=== PATIENT | male | born 1945 | race Caucasian/White ===

== ENCOUNTER 2019-11-22 13:19 | Emergency (ER) | payer OTHER ==
--- NOTE | 2019-11-22 13:59 | EDM.PDOC ---
ED HPI GENERAL MEDICAL PROBLEM - General Chief Complaint: General Stated Complaint: L SIDE FACE/TONGUE SWOLLEN/NUMB Time Seen by Provider: 11/22/19 13:45 Source of Information: Reports: Patient History Limitations: Reports: No Limitations - History of Present Illness INITIAL COMMENTS - FREE TEXT/NARRATIVE: Michelle is a 74yo male that comes to the ED with a 3 weeks history of intermittent left cheek and left side of tongue numbness and pain. States that he took ibuprofen and it seemed to help. Yesterday afternoon and overnight the numbness and pain returned for the third time and he figured it was time to get it checked out. He took 400mg of ibuprofen at 800 am and currently rates his pain 3-4/10. At it's worst, he rated the pain 5-6/10. 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 [Unable to Verify Home Med List] 11/22/19 [History] ED ROS GENERAL - Review of Systems Review Of Systems: See Below Constitutional: Reports: No Symptoms HEENT: Reports: Other (pain and numbness along left mandible up into cheek and left tongue) Respiratory: Reports: No Symptoms Cardiovascular: Reports: No Symptoms Endocrine: Reports: No Symptoms GI/Abdominal: Reports: No Symptoms : Reports: No Symptoms Musculoskeletal: Reports: No Symptoms Skin: Reports: No Symptoms Neurological: Reports: No Symptoms Psychiatric: Reports: No Symptoms Hematologic/Lymphatic: Reports: No Symptoms Immunologic: Reports: No Symptoms ED EXAM, GENERAL - Physical Exam Exam: See Below Exam Limited By: Intoxication General Appearance: Alert, WD/WN, No Apparent Distress Eye Exam: Bilateral Eye: EOMI, Normal Inspection, PERRL Ears: Normal External Exam, Normal Canal, Normal TMs Ear Exam: Bilateral Ear: Auricle Normal, Canal Normal Nose: Normal Inspection, Normal Mucosa Throat/Mouth: Normal Inspection, Normal Lips, Normal Gums. No: Normal Teeth (all teeth have been removed- normally wears dentures but has sparingly due to facial & tongue pain) Head: Atraumatic, Normocephalic, Facial Tenderness (left cheek, mandible, under jaw). No: Facial Swelling Neck: Normal Inspection, Non-Tender, Full Range of Motion. No: Lymphadenopathy (R), Lymphadenopathy (L), Thyromegaly Respiratory/Chest: No Respiratory Distress, Lungs Clear, Normal Breath Sounds, Chest Non-Tender. No: Crackles, Wheezing Cardiovascular: Regular Rate, Rhythm Peripheral Pulses: 2+: Radial (L), Radial (R) GI/Abdominal: Soft, Non-Tender (Male) Exam: Deferred Rectal (Males) Exam: Deferred Back Exam: Normal Inspection. No: CVA Tenderness (R), CVA Tenderness (L) Extremities: Normal Inspection, Normal Capillary Refill Neurological: Alert, Oriented, CN II-XII Intact, Normal Cognition, Normal Gait, No Motor/Sensory Deficits Psychiatric: Normal Affect, Normal Mood Skin Exam: Warm, Dry, Intact Lymphatic: No Adenopathy Course - Vital Signs Last Recorded V/S: Last Vital Signs Temp 96.6 F L 11/22/19 13:56 Pulse 85 11/22/19 13:56 Resp 12 11/22/19 13:56 BP 156/76 H 11/22/19 13:56 Pulse Ox 95 11/22/19 13:56 - Orders/Labs/Meds Labs: Laboratory Tests 11/22/19 11/22/19 Range/Units 14:17 14:30 WBC 6.3 (4.5-11.0) K/uL RBC 5.25 (4.30-5.90) M/uL Hgb 14.8 (12.0-15.0) g/dL Hct 45.5 (40.0-54.0) % MCV 87 (80-98) fL MCH 28 (27-31) pg MCHC 33 (32-36) % Plt Count 204 (150-400) K/uL Neut % (Auto) 75 H (36-66) % Lymph % (Auto) 15 L (24-44) % [place] % (Auto) 7 H (2-6) % Eos % (Auto) 3 (2-4) % Baso % (Auto) 1 (0-1) % Sodium 141 (140-148) mmol/L Potassium 4.3 (3.6-5.2) mmol/L Chloride 106 (100-108) mmol/L Carbon Dioxide 26 (21-32) mmol/L Anion Gap 8.8 (5.0-14.0) mmol/L BUN 18 (7-18) mg/dL Creatinine 1.1 (0.8-1.3) mg/dL Est Cr Clr Drug Dosing 58.02 mL/min Estimated GFR (MDRD) > 60 (>60) Glucose 87 (74-106) mg/dL Calcium 8.3 L (8.5-10.1) mg/dL Total Bilirubin 0.4 (0.2-1.0) mg/dL AST 18 (15-37) U/L ALT 30 (12-78) U/L Alkaline Phosphatase 99 (46-116) U/L C-Reactive Protein 0.74 H (0.0-0.3) mg/dL Total Protein 6.5 (6.4-8.2) g/dL Albumin 3.6 (3.4-5.0) g/dL Globulin 2.9 (2.3-3.5) g/dL Albumin/Globulin Ratio 1.2 (1.2-2.2) TSH, Ultra Sensitive 2.095 (0.358-3.740) uIU/mL Meds: Medications Discontinued Medications Generic Name Dose Route Start Last Admin Trade Name Freq PRN Reason Stop Dose Admin Sodium Chloride 70 mls @ 3 mls/sec 11/22/19 14:40 11/22/19 15:05 Normal Saline IV 11/22/19 14:41 3 mls/sec ONETIME ONE Administration Iopamidol 100 ml 11/22/19 14:40 11/22/19 15:05 Isovue-300 (61%) IV 100 ml . DIRECTED PRN Administration RADIOLOGY EXAM Sodium Chloride 10 ml 11/22/19 14:40 11/22/19 15:05 Saline Flush FLUSH 10 ml ONETIME PRN Administration PER RADIOLOGY PROTOCOL - Radiology Interpretation Free Text/Narrative:: CT reading showed no cause for numbness and pain of left cheek/ tongue Departure - Departure Time of Disposition: 16:16 Disposition: Home, Self-Care 01 Clinical Impression: Left facial pain, Tongue pain - Discharge Information *PRESCRIPTION DRUG MONITORING PROGRAM REVIEWED*: Not Applicable *COPY OF PRESCRIPTION DRUG MONITORING REPORT IN PATIENT [place]SEMARY: Not Applicable Instructions: Glossopharyngeal Neuralgia, Neuropathic Pain Referrals: PCP,None [Primary Care Provider] - Forms: ED Department Discharge Additional Instructions: Continue with your current home medications. You have been placed on the referral list for an ENT (ear, nose, throat) appointment for when they are in [place] next. [facility] should call you with an appointment time. Call or return to ED with any worsening of symptoms like inability to swallow, increased swelling, facial drooping, severe pain or any other concerns. Sepsis Event Note (ED) - Focused Exam Vital Signs: Vital Signs Temp Pulse Resp BP Pulse Ox 11/22/19 13:56 96.6 F L 85 12 156/76 H 95 11/22/19 13:30 96.6 F L 85 12 156/76 H 95 - Assessment/Plan Plan: plan to discharge home. Follow-up with ENT when they are in [place] next- placed on referral list to . Pt agreeable to plan
[2019-11-22] MEDS ORDERED: Iopamidol 612 MG/ML 100 ML Bottle IV PRN (14:40)
[2019-11-22] MEDS: Sodium Chloride 0.9% 10 ML Syringe FLUSH PRN ×2 (14:47→15:05)
--- NOTE | 2019-11-22 15:53 | CRLCT ---
INDICATION: Numbness of left cheek and tongue TECHNIQUE: CT of the neck with 100 cc Isovue-300 iodinated contrast agent. Coronal and sagittal reconstructions are included. COMPARISON: No prior studies available for comparison at this institution. FINDINGS: A skin marker is noted along the left submental space. No underlying skin or subcutaneous lesions are identified. There is no mass or other lesion within the soft tissues of the suprahyoid or infrahyoid neck. No lymphadenopathy. The oral cavity, nasopharyngeal, oropharyngeal and hypopharyngeal mucosal spaces are normal. The patient is edentulous. The nasal septum is deviated to the right. The supraglottic, glottic and infraglottic larynx are normal. The airway including the trachea is normal and is patent. The parotid glands, submandibular and sublingual glands are normal in appearance. The vascular structures opacify normally with contrast material. Visualized orbital and intracranial contents are normal. Minimal mucosal thickening in the right maxillary sinus. Bilateral palatine tonsil calculi consistent with tonsilliths. Incidental 1 centimeter hypodense left thyroid nodule. No suspicious lytic or blastic osseous lesions. Scattered mild cervical spondylosis without significant neural foraminal stenosis. Incidental 3.2 cm lipoma in the left posterior neck between the splenius capitus and semispinalis capitus muscles. Supraclavicular regions, mediastinum and soft tissues of the imaged chest wall are normal. Visualized portions of the upper lungs are clear. IMPRESSION: 1. No suspicious neck mass or enhancement. 2. A skin marker is noted along the left submental space. No underlying skin or subcutaneous lesions are identified. 3. No evidence of neck inflammation. 4. No lymphadenopathy. 5. Incidental 3.2 cm lipoma in the left posterior neck between the splenius capitus and semispinalis capitus muscles. Please note that all CT scans at this facility use dose modulation, iterative reconstruction, and/or weight-based dosing when appropriate to reduce radiation dose to as low as reasonably achievable. Dictated by Angel Espitia MD @ Nov 22 2019 3:41PM Signed by Dr. Angel Espitia @ Nov 22 2019 3:51PM
== END 2019-11-22 16:30 | disposition home or self-care (01) ==
LOC: JP.ED 13:19
DX: K14.6 Glossodynia (principal); R51 Headache
CPT/HCPCS: 36415; 70491; 80053; 84443; 85025; 86140; 99283; J7050; Q9967

== ENCOUNTER 2024-07-24 14:21 | Emergency (ER) | payer SELFPAY ==
[2024-07-24] MEDS ORDERED: HYDROmorphone 1 MG/ML Syringe IVPUSH PRN (15:21)
[2024-07-24] MEDS ORDERED: Naloxone 0.4 MG/ML SDV IVPUSH PRN (15:21)
[2024-07-24 15:34] LABS: BASOPHILS ABSOLUTE AUTO 0.02 K/uL (0.00-0.10); BASOPHILS PERCENT AUTO 0.4 % (0.1-1.3); EOSINOPHILS ABSOLUTE AUTO 0.15 K/uL (0.00-0.40); EOSINOPHILS PERCENT AUTO 2.8 % (0.0-5.4); HEMATOCRIT 29.6 % (38.4-49.7); HEMOGLOBIN 9.9 g/dL (12.9-16.9); IMMATURE GRAN ABSOLUTE AUTO 0.02 K/uL (0.00-0.23); IMMATURE GRAN PERCENT AUTO 0.4 % (0.0-0.7); LYMPHOCYTES ABSOLUTE AUTO 0.84 K/uL (0.8-3.3); LYMPHOCYTES PERCENT AUTO 15.7 % (11.4-47.7); MEAN CORPUSCULAR HEMOGLOBIN 29.6 pg (31.6-35.5); MEAN CORPUSCULAR HGB CONC 33.4 g/dL (31.6-35.5); MEAN CORPUSCULAR VOLUME 88.4 fL (81.4-99.0); MONOCYTES PERCENT AUTO 13.1 % (3.3-12.6); NEUTROPHILS ABSOLUTE AUTO 3.62 K/uL (1.0-7.6); NEUTROPHILS PERCENT AUTO 67.6 % (40.0-78.1); PLATELET COUNT,PLT 219 K/uL (130-375); RED BLOOD CELL COUNT 3.35 M/uL (4.14-5.76); WHITE BLOOD CELL COUNT,WBC 5.4 K/uL (3.2-11.0)
[2024-07-24] MEDS: Sodium Chloride 0.9% 1,000 ML IV ONE (15:45)
[2024-07-24 15:54] LABS: C-REACTIVE PROTEIN 2.04 mg/dL (<0.50)
[2024-07-24 15:55] LABS: A/G RATIO 0.8 (1.2-2.2); ALANINE AMINOTRANSFERASE,ALT 43 U/L (12-78); ALBUMIN 2.1 g/dL (3.4-5.0); ALKALINE PHOSPHATASE 111 U/L (46-116); ANION GAP 6.7 mmol/L (5.0-14.0); ASPARTATE AMNIOTRANSFERASE,AST 33 U/L (15-37); BILIRUBIN TOTAL 0.3 mg/dL (0.2-1.0); BLOOD UREA NITROGEN,BUN 40 mg/dL (7-18); CALCIUM 7.9 mg/dL (8.5-10.1); CARBON DIOXIDE,CO2 27 mmol/L (21-32); CHLORIDE,CL 107 mmol/L (100-108); CREATININE 1.5 mg/dL (0.8-1.3); EST CRCL DRUG DOSING (CG) 39.28 mL/min; ESTIMATED GFR 47 mL/min (>60); GLUCOSE RANDOM 85 mg/dL (74-106); PROTEIN TOTAL,TP 4.8 g/dL (6.4-8.2); SODIUM,NA 141 mmol/L (140-148)
[2024-07-24] MEDS: Ondansetron 4 MG/2 ML SDV IVPUSH PRN (16:00)
[2024-07-24] MEDS: Sodium Chloride 0.9% 100 ML IV ONE (16:30)
[2024-07-24] MEDS: Iopamidol 612 MG/ML 100 ML Bottle IV ONE (16:30)
[2024-07-24 16:58] LABS: APPEARANCE,URINE CLEAR (CLEAR); BILIRUBIN,URINE NEGATIVE (NEGATIVE); COLOR,URINE YELLOW (YELLOW); GLUCOSE,URINE NEGATIVE (NEGATIVE); KETONES,URINE NEGATIVE (NEGATIVE); LEUKOCYTE ESTERASE,URINE NEGATIVE (NEGATIVE); NITRITE,URINE NEGATIVE (NEGATIVE); OCCULT BLOOD,URINE TRACE-INTACT (NEGATIVE); PROTEIN,URINE >=300 mg/dL (NEGATIVE); UROBILINOGEN,URINE 0.2 EU/dL (0.2-1.0)
[2024-07-24 17:04] LABS: AMORPHOUS SEDIMENT,URINE NOT SEEN; BACTERIA,URINE FEW; EPITHELIAL CELLS,URINE NOT SEEN; MUCUS,URINE RARE; WBC,URINE 0-5 (0-5)
== END 2024-07-24 19:11 | disposition left against medical advice (07) ==
LOC: JP.ED 14:21
DX: K56.609 Unspecified intestinal obstruction, unspecified as to partial versus complete obstruction (principal); I10 Essential (primary) hypertension; E78.00 Pure hypercholesterolemia, unspecified; Z88.0 Allergy status to penicillin; Z79.899 Other long term (current) drug therapy; Z88.8 Allergy status to other drugs, medicaments and biological substances
CPT/HCPCS: 36415; 74177; 80053; 81001; 83605; 83690; 85025; 86140; 96361; 96374; 99284; J2405; J7030; Q9967